=== PATIENT | female | born 1985 | race Caucasian/White ===

== ENCOUNTER 2016-06-21 05:33 | Emergency (ER) | payer BC ==
--- NOTE | ~2016-06-21 | EKG ---
PATIENT: LISA PEREZ UNIT #: [id number] Ventricular Rate: 45 BPM Atrial Rate: 45 BPM P-R Interval: 122 ms QRS Duration: 88 ms Q-T Interval: 520 ms QTC Calculation(Bezet): 449 ms P [place]: 74 degrees Calculated R [place]: 75 degrees Calculated T Wortham: 69 degrees Diagnosis Line: Sinus bradycardia Diagnosis Line: Otherwise normal ECG Diagnosis Line: When compared with ECG of 21-JUN-2016 04:13, Diagnosis Line: (unconfirmed) Diagnosis Line: No significant change was found Diagnosis Line: Confirmed by DENIS PATRICK MD ([id number]) on 06/21/2016 Diagnosis Line: 10:13:23 PM INTERPRETING MD: CELINA SALAZAR
--- NOTE | ~2016-06-21 | CR4 ---
[facility] A Service of [facility] [place] RADIOLOGY TEXT RESULTS PATIENT: LISA PEREZ LOCATION: [facility] : 81 UNIT #: [id number] AGE: [address]: Naz Sanabria SEX: F ORDER DR: [id number] [facility] [address] [place], [place] [address] [id number] E MR#: [id number] Acc #: [id number] NAME: LISA PEREZ. : 1985 SEX: F STUDY DATE/TIME: 06/21/2016 5:47 UNIT: [facility] ROOM: STUDY DESCRIPTION: CR Abdomen Flat Upright or Dec Attending Physician: Naz Sanabria Pa-C Ordering Physician: Naz Sanabria Pa-C Primary Care Physician: Gallo Yee M.D. MEDICAL IMAGING REPORT This report is preliminary unless electronic signature is present EXAM Abdomen flat and upright HISTORY Abdominal pain for four days. DATE: 06/21 COMPARISON: None FINDINGS A flat and upright view of the abdomen were obtained. The bowel gas pattern is normal. The bones are normal. There is no free air. IMPRESSION Normal flat and upright abdomen series. Dictated by... Christian Davis M.D. THIS IS AN ELECTRONICALLY VERIFIED REPORT Christian Davis M.D. at 06/21/2016 11:44 AM LAURE/lindsey TD: 06/21/2016 07:41 JOB #: [id number] MEDICAL IMAGING REPORT Page 1 of 1 COPY
[2016-06-21 03:07] LABS: BASOPHIL# 0.1 X10e3 (0-0.3); EOSINOPHIL# 0.1 X10e3 (0-0.7); HEMATOCRIT 42.6 % (35.0-45.0); HEMOGLOBIN 14.3 gm/dL (12.0-16.0); LYMPHOCYTE# 2.8 X10e3 (1.0-3.5); LYMPHOCYTE% 42.1 % (17.0-45.0); MEAN CELL VOLUME 89.2 FL (83-96); MEAN CORPUSCULAR HGB CONC 33.6 g/dL (30-36); MEAN PLATELET VOLUME 7.3 FL (6.5-11.5); MONOCYTE# 0.5 X10e3 (0-1.0); MONOCYTE% 7.7 % (3.0-12.0); NEUTROPHIL# 3.1 X10e3 (1.5-7.1); NEUTROPHIL% 47.2 % (40-75); PLATELET COUNT 189 X10e3 (140-420); RED BLOOD COUNT 4.77 X10e (3.90-5.30); RED CELL DISTRIBUTION WIDTH 12.7 % (11.0-15.5); WHITE BLOOD COUNT 6.5 X10e3 (4.0-10.5)
[2016-06-21 03:08] LABS: DIFF IND NO
[2016-06-21 03:38] LABS: ALBUMIN SERUM 4.3 g/dL (3.5-5.0); BILIRUBIN, DIRECT 0.1 mg/dL (0.0-0.2); BILIRUBIN,INDIRECT 0.6 mg/dL (0.0-0.9); BILIRUBIN,TOTAL 0.7 mg/dL (0.2-2.0); CALCIUM SERUM 8.9 mg/dL (8.4-10.2); POTASSIUM 4.3 mmol/L (3.5-5.1); PROTEIN TOTAL SERUM 6.7 g/dL (6.0-8.3)
[2016-06-21 04:35] LABS: URINE SOURCE CLEAN CATCH
[2016-06-21 04:39] LABS: URINE APPEARANCE CLEAR; URINE BILIRUBIN NEG (NEG); URINE BLOOD 1+ (NEG); URINE COLOR YELLOW; URINE GLUCOSE NEG (NEG); URINE KETONE NEG (NEG); URINE LEUKOCYTE ESTERASE NEG (NEG); URINE NITRATE NEG (NEG); URINE PH 5.5 (5-8); URINE PROTEIN NEG (NEG); URINE SPECIFIC GRAVITY 1.021 (1.003-1.035)
[2016-06-21 04:42] LABS: U HYALINE CASTS AUWI 0-2 /[LPF]; URINE BACTERIA AUWI NEG (NEGATIVE); URINE SQUAMOUS EPITHELIAL CELL OCC /[HPF]; UWBCS1 AUWI 0-2 (0-5)
[2016-06-21 04:46] LABS: CULTURE INDICATED? NO
[~2016-06-21 05:33] MED LIST: IBUPROFEN800 MG PO; LEVAQUIN PO; ZEGERID40 MG/PKT PO; ZOFRAN ODT4 MG PO
== END 2016-06-21 06:47 | disposition home or self-care (01) ==
LOC: CED 05:33
PROVIDERS: Emergency Medicine
DX: K29.70 Gastritis, unspecified, without bleeding (principal); Z90.710 Acquired absence of both cervix and uterus; Z88.5 Allergy status to narcotic agent; Z88.7 Allergy status to serum and vaccine
CPT/HCPCS: 36415; 74020; 80048; 80076; 81003; 82150; 83690; 85025; 93005; 96374; 99284; C9113

== ENCOUNTER → 2016-07-27 | Outpatient (CLI) | payer BC ==
--- NOTE | ~2016-07-27 | US5 ---
[facility] A Service of [facility] RADIOLOGY TEXT RESULTS PATIENT: LISA PEREZ LOCATION: [facility] : 81 UNIT #: [id number] AGE: [address]: RIGO MERINO APRN SEX: F ORDER DR: [id number] [facility] [address] [place], [place] [address] [id number] O MR#: [id number] Acc #: [id number] NAME: LISA PEREZ : 1985 SEX: F STUDY DATE/TIME: 07/27/2016 8:46 UNIT: US ROOM: STUDY DESCRIPTION: US Abdominal Complete Attending Physician: Rigo Merino Aprn Referring Physician: Rigo Merino Aprn Ordering Physician: Rigo Merino Aprn Primary Care Physician: Gallo Yee M.D. MEDICAL IMAGING REPORT This report is preliminary unless electronic signature is present EXAM Abdominal ultrasound complete, 07/27/2016 HISTORY Left side abdominal pain for 4 weeks and hypoglycemia with abdominal bloating. Right upper quadrant pain for 1 month. FINDINGS The liver is homogeneous in echotexture and demonstrates no cystic or solid mass lesions. The intra and extrahepatic bile ducts are not dilated. The gallbladder is normal with no evidence of cholelithiasis, wall thickening or pericholecystic fluid. The common duct measures 2.0 mm. The pancreas and spleen are normal. The spleen measures 9.1 cm in greatest diameter. The visualized portions of the abdominal aorta and inferior vena cava are within normal limits. The kidneys are normal bilaterally. IMPRESSION Negative abdominal ultrasound. Dictated by... Bhanu Ernst M.D. THIS IS AN ELECTRONICALLY VERIFIED REPORT Bhanu Ernst M.D. at 08/02/2016 8:07 AM YAYA/lewis TD: 07/27/2016 10:05 JOB #: [id number] MEDICAL IMAGING REPORT Page 1 of 1 COPY
== END | disposition home or self-care (01) ==
LOC: CGUS 07-22 09:00
DX: R14.0 Abdominal distension (gaseous) (principal)
CPT/HCPCS: 76700

== ENCOUNTER → 2016-08-18 | Outpatient (CLI) | payer BC ==
--- NOTE | ~2016-08-18 | CT7 ---
[facility] A Service of [facility] [place] RADIOLOGY TEXT RESULTS PATIENT: LISA PEREZ [facility] : 81 UNIT #: [id number] AGE: [address]: RIGO MERINO APRN SEX: F ORDER DR: [id number] [place], [place] [address] [id number] O MR#: [id number] Acc #: [id number] NAME: LISA PEREZ : 1985 SEX: F STUDY DATE/TIME: 08/18/2016 16:35 UNIT: [facility] ROOM: STUDY DESCRIPTION: CT Abdomen Wo Cont Attending Physician: Rigo Merino Aprn Referring Physician: Rigo Merino Aprn Ordering Physician: Rigo Merino Aprn Primary Care Physician: Gallo Yee M.D. MEDICAL IMAGING REPORT This report is preliminary unless electronic signature is present EXAM CT abdomen without contrast INDICATION Abdominal bloating. Left upper quadrant abdominal epigastric abdominal pain for the past [address] of the abdomen. This CT exam was performed with one or more of the following radiation dose reduction techniques: automatic exposure control, adjustment of mA and/or kV according to patient size, and iterative reconstruction. COMPARISON 03/18/2011 FINDINGS Included lung base is clear. A 1.8 cm area of low density in the junction of segments 4 and 8. Previously measured 1.2 cm. It was previously characterized as a benign hemangioma. The spleen, kidneys, adrenal glands, pancreas and gallbladder have an unremarkable unenhanced appearance. Moderate colonic stool. No aggressive-appearing bone lesion. IMPRESSION 1. No acute findings. 2. Moderate colonic stool burden. 3. Low-attenuation lesion in the liver previously characterized as a benign hemangioma. [facility] A Service [facility] RADIOLOGY TEXT RESULTS PATIENT: LISA PEREZ LOCATION: [facility] : 81 UNIT #: [id number] AGE: [address]: RIGO MERINO APRN SEX: F ORDER DR: Dictated by... Krystian Francisco M.D. THIS IS AN ELECTRONICALLY VERIFIED REPORT Krystian Francisco M.D. at 08/18/2016 10:23 PM NANCYD/ivory TD: 08/18/2016 21:39 JOB #: [id number] MEDICAL IMAGING REPORT Page 1 of 1 COPY
== END | disposition home or self-care (01) ==
LOC: CCAT 16:14
DX: R10.12 Left upper quadrant pain (principal); R14.0 Abdominal distension (gaseous); K76.9 Liver disease, unspecified
CPT/HCPCS: 74150